=== PATIENT | female | born 1955 | race Caucasian/White ===

== ENCOUNTER 2017-02-24 13:56 | Emergency (ER) | payer BC, OTHER ==
[~2017-02-24] VITALS: Ht 162.6 cm; Wt 55.8 kg
[2017-02-24] MEDS ORDERED: AZATHIOPRINE50 MG PO (14:11)
[2017-02-24] MEDS ORDERED: FLAGYL500 MG PO (14:11)
[2017-02-24] MEDS ORDERED: CYMBALTA60 MG PO (14:12)
[2017-02-24] MEDS ORDERED: ALENDRONATE SOD70 MG PO (14:12)
[2017-02-24] MEDS ORDERED: TRAMADOL 50 MG50 MG PO (14:12)
[2017-02-24] MEDS ORDERED: PILOCARPINE HCL5 M1 PO (14:13)
[2017-02-24] MEDS ORDERED: CYCLOBENZAPRINE5 MG PO (14:13)
[2017-02-24] MEDS ORDERED: PREMPRO 0.3 MG1 EACH PO (14:14)
[2017-02-24] MEDS ORDERED: NAPROSYN500 MG PO (15:46)
[2017-02-24] MEDS ORDERED: NORFLEX100 MG PO (15:46)
[2017-02-24 16:18] VITALS: BP 147/72
== END 2017-02-24 16:00 | disposition home or self-care (01) ==
LOC: ER 13:56
DX: S16.1XXA Strain of muscle, fascia and tendon at neck level, initial encounter (principal); S29.012A Strain of muscle and tendon of back wall of thorax, initial encounter; Z88.2 Allergy status to sulfonamides; V89.2XXA Person injured in unspecified motor-vehicle accident, traffic, initial encounter; Y93.89 Activity, other specified; Y92.89 Other specified places as the place of occurrence of the external cause; Y99.8 Other external cause status